=== PATIENT | female | born 1990 | race Caucasian/White ===

== ENCOUNTER → 2020-06-02 16:20 | Outpatient (CLI) | payer OTHER, SELFPAY ==
[2020-06-02 14:28] VITALS: BMI 29.2
[2020-06-02 19:46] LABS: Estradiol 46.1 pg/mL; Follicle Stimulating Hormone 6.7 mIU/mL; Prolactin 9.8 ng/mL; T4 Free Direct 0.95 ng/dL (0.76-1.46); Thyroid Stim Hormone (TSH) 8.94 uIU/mL (0.358-3.74)
[2020-06-07 16:18] LABS: Testosterone Free 1.4 pg/mL (0.0-4.2)
[2020-06-07 20:49] LABS: 17-Hydroxyprogesterone 59 ng/dL (.)
== END ==
PROVIDERS: Referring Provider Obstetrics & Gynecology; Visit Provider Obstetrics & Gynecology
DX: F32.81 Premenstrual dysphoric disorder (principal); Z13.29 Encounter for screening for other suspected endocrine disorder; N91.1 Secondary amenorrhea
CPT/HCPCS: 36415; 82627; 82670; 83001; 83498; 84146; 84402; 84439; 84443; 82626